=== PATIENT | female | born 1950 | race Caucasian/White ===

== ENCOUNTER 2022-03-09 16:20 | Emergency (ER) | payer MEDICARE, SELFPAY ==
--- NOTE | 2022-03-09 16:31 | DI.RAD.S_ITS ---
PROCEDURE: XR ACUTE ABDOMEN SERIES INDICATIONS: constipation x 8 days TECHNIQUE: One view chest and two views of the abdomen were acquired. COMPARISON: None. FINDINGS: Surgical changes and devices: None. Chest: Lungs are clear. Heart size is normal. No pleural effusions. No pneumoperitoneum. Abdomen: Bowel gas pattern is normal. No suspicious calcifications. Visualized solid organ contours appear normal. Gastric lap band and port in good position. No evidence of breaks in the tubing. Bones: No suspicious bony lesions. IMPRESSION: No acute cardiopulmonary findings Nonobstructive bowel gas pattern. Moderate fecal debris in the rectum. Approved by: Fausto Soto M.D. on 03/09/2022 at 16:22
[2022-03-09 16:34] VITALS: BP 169/81; PULSE 88; RESP 16; TEMP 36.7; O2SAT 100; BMI 28.8
[2022-03-09 16:49] VITALS: PULSE 79; O2SAT 100
[2022-03-09 17:00] VITALS: PULSE 73; O2SAT 100
[2022-03-09 17:21] VITALS: BP 166/79; PULSE 74; O2SAT 100
[2022-03-09 17:30] VITALS: BP 159/83; PULSE 71; O2SAT 98
--- NOTE | 2022-03-09 17:43 | ED.ABDPAIN ---
HPI - Abdominal Pain <Perry López PA-C - Last Filed: 03/09/22 18:24> General Chief Complaint: Abdominal Pain Stated Complaint: CONSTIPATION 8 DAYS BOWEL IMPACT Time Seen by Provider: 03/09/22 16:48 Source: patient Mode of arrival: Family Vehicle History of Present Illness HPI narrative: This is a 72-year-old female presenting to the emergency department due to 8 days of constipation. She states she has taken 1 dose of Colace yesterday without significant relief. States she can ?feel? in her rectum. Denies any acute stabbing abdominal pain just reports a dull aching sensation. Has not had constipation like this in the past. Denies any nausea, vomiting, fevers, or any other concerning signs or symptoms. Related Data Home Medications Medication Instructions Recorded Confirmed Statin PO 03/03/22 03/03/22 alprazolam 0.25 mg tablet 0.25 mg PO DAILY 03/03/22 03/03/22 baclofen 10 mg tablet 10 mg PO DAILY 03/03/22 03/03/22 methylprednisolone 4 mg tablets in See Rx Instructions PO PER PKG DIR 03/03/22 03/03/22 a dose pack Previous Rx's Medication Instructions Recorded docusate calcium 240 mg capsule 240 mg PO DAILY #5 cap 03/09/22 Allergies Allergy/AdvReac Type Severity Reaction Status Date / Time codeine AdvReac Mild Nausea Verified 03/09/22 16:39 Review of Systems <Perry López PA-C - Last Filed: 03/09/22 18:24> Review of Systems Narrative: See HPI Patient History <Perry López PA-C - Last Filed: 03/09/22 18:24> Social History Smoking Status: Never smoker Smoking Status: Never smoker alcohol intake frequency: 0-2 drinks per day Alcohol type: beer, wine and hard liquor Substance Use Type: does not use Exam <DAV Arellano Last Filed: 03/09/22 18:24> Initial Vital Signs Initial Vital Signs: Vital Signs Temperature 98.0 F 03/09/22 16:34 Pulse Rate 88 03/09/22 16:34 Respiratory Rate 16 03/09/22 16:34 Blood Pressure 169/81 H 03/09/22 16:34 Pulse Oximetry 100 03/09/22 16:34 Const General: cooperative and healthy appearing GI Palpation: soft and other Other: Very mild generalized tenderness to palpation of the abdomen <DO Ashanti Hu Last Filed: 03/10/22 08:10> Initial Vital Signs Initial Vital Signs: Vital Signs Temperature 98.0 F 03/09/22 16:34 Pulse Rate 88 03/09/22 16:34 Respiratory Rate 16 03/09/22 16:34 Blood Pressure 169/81 H 03/09/22 16:34 Pulse Oximetry 100 03/09/22 16:34 Course <DAV Arellano Last Filed: 03/09/22 18:24> Orders Ordered: ED Orders 03/09/22 16:31 XR acute abdomen series Stat Vital Signs Vital signs: Vital Signs - 8 hr 03/09/22 16:34 03/09/22 16:49 03/09/22 17:00 Temperature 98.0 F Pulse Rate 88 79 73 Respiratory Rate 16 Blood Pressure 169/81 H Pulse Oximetry 100 100 100 03/09/22 17:21 03/09/22 17:30 Temperature Pulse Rate 74 71 Respiratory Rate Blood Pressure 166/79 H 159/83 H Pulse Oximetry 100 98 <DO Ashanti Hu Last Filed: 03/10/22 08:10> Orders Ordered: ED Orders 03/09/22 16:31 XR acute abdomen series Stat Vital Signs Vital signs: Vital Signs - 8 hr 03/09/22 16:34 03/09/22 16:49 03/09/22 17:00 Temperature 98.0 F Pulse Rate 88 79 73 Respiratory Rate 16 Blood Pressure 169/81 H Pulse Oximetry 100 100 100 03/09/22 17:21 03/09/22 17:30 Temperature Pulse Rate 74 71 Respiratory Rate Blood Pressure 166/79 H 159/83 H Pulse Oximetry 100 98 MDM - Abdominal Pain <DAV Arellano Last Filed: 03/09/22 18:24> Imaging Data Abdominal x-ray: Radiologist's Impression: [address] [address] XRay Report Signed Patient: Usha Bah MR#: [id number] : 1950 Acct:[id number] Age/Sex: 72 / F Date of Service: 03/09/22 Loc: ED Accession Number: [id number] ?? Procedure: XR acute abdomen series Ordering Provider: Perry López P.A-C PROCEDURE:? XR ACUTE ABDOMEN SERIES ? INDICATIONS:? constipation x 8 days ? TECHNIQUE:? One view chest and two views of the abdomen were acquired.? ? COMPARISON:? None. ? FINDINGS:? ? Surgical changes and devices:? None.? ? Chest:? Lungs are clear.? Heart size is normal.? No pleural effusions.? No pneumoperitoneum.? ? Abdomen:? Bowel gas pattern is normal.? No suspicious calcifications.? Visualized solid organ contours appear normal.? Gastric lap band and port in good position.? No evidence of breaks in the tubing. ? Bones:? No suspicious bony lesions.? ? IMPRESSION:? ? No acute cardiopulmonary findings Nonobstructive bowel gas pattern.? Moderate fecal debris in the rectum. ? ? ? Approved by: Fausto Soto M.D. on 03/09/2022 at 16:22? MDM Narrative Medical decision making narrative: This is a 72-year-old female presents to the emergency department due to suspected constipation. X-ray of the abdomen shows a nonobstructive bowel gas pattern patient does not describe any acute pain concerning for small bowel obstruction. Shared decision making was utilized with the patient who preferred going home with oral laxatives rather than a fecal disimpaction and enema. Patient stated that she would return if the oral laxatives were ineffective. No acute abdominal tenderness palpation concerning for an acute abdomen. Vitals unremarkable. Discharge Plan Departure Patient Disposition: Home Clinical Impression: Constipation Instructions: DI for Constipation Activity Restrictions/Additional Instructions: Thank you for coming to the [facility] Emergency Department today. As we discussed I suspect this is just benign constipation. The x-ray of her abdomen showed no obstruction in your intestines. Please take these medications as prescribed and that should help with the constipation. Please also review the test permission for more information about general constipation. As we discussed if these medications are ineffective you may return for fecal disimpaction (the procedure I described to you) and enema. Prescriptions: New docusate calcium 240 mg capsule 240 mg PO DAILY Qty: 5 0RF No Action methylprednisolone 4 mg tablets,dose pack See Rx Instructions PO PER PKG DIR 0RF Rx Instructions: PO PER PKG DIR baclofen 10 mg tablet 10 mg PO DAILY 0RF alprazolam 0.25 mg tablet 0.25 mg PO DAILY 0RF Statin PO 0RF <Audra Ratliff, DO - Last Filed: 03/10/22 08:10> Cosign ED Attending Cosignature Attestation: I was immediately available in the department for consultation. Documentation has been reviewed. I agree with assessment and plan.
== END 2022-03-09 18:01 | disposition home or self-care (01) ==
PROVIDERS: Emergency Provider Physician Assistant Medical
DX: K59.00 Constipation, unspecified (principal)
CPT/HCPCS: 74022; 99283

== ENCOUNTER 2022-08-11 09:51 | Emergency (ER) | payer MEDICARE, SELFPAY ==
[2022-08-11 10:00] VITALS: BP 133/68; PULSE 89; RESP 18; TEMP 36.9; O2SAT 99; BMI 25.7
[2022-08-11] MEDS: SODIUM CHLORIDE 0.9% 1,000 ML 1000 ML IV (10:26)
[2022-08-11 10:28] LABS: Add Manual Diff / Slide Review NO; Basophils Absolute Auto 0 /uL (0-100); Basophils Percent Auto 0.3 % (0-2); Eosinophils Absolute Auto 100 /uL (0-450); Eosinophils Percent Auto 2.1 % (2-4); Hematocrit 36.4 % (36-46); Hemoglobin 12.5 g/dL (12.0-16.0); Lymphocytes Absolute Auto 1000 /uL (1100-4500); Lymphocytes Percent Auto 14.1 % (25-40); Mean Corpuscular HGB Conc 34.3 % (30-36); Mean Corpuscular Hemoglobin 30.9 PG (26-34); Mean Corpuscular Volume 90.2 fL (80-100); Monocytes Absolute Auto 600 /uL (0-900); Neutrophils Absolute Auto 5200 /uL (1500-7000); Neutrophils Percent Auto 74.5 % (50-75); Platelet Count 319 X10^3/uL (150-400); Red Blood Cell Count 4.04 X10^6/uL (4.0-5.2)
[2022-08-11 10:37] LABS: Alanine Aminotransferase 14 IU/L (<35); Albumin 4.3 g/dL (3.5-5.0); Albumin Globulin Ratio 1.5 (1.0-2.8); Alkaline Phosphatase 80 U/L (38-126); Aspartate Aminotransferase 28 IU/L (14-36); BUN Creatinine Ratio 16.3 (6-22); Bilirubin Total 1.1 mg/dL (0.2-1.3); Blood Urea Nitrogen 13 mg/dL (7-17); Calcium 9.1 mg/dL (8.4-10.2); Carbon Dioxide 21 mmol/L (22-32); Chloride 100 mmol/L (98-107); Estimated Glomerular Filt Rate > 60 mL/min (>60); Globulin 2.9 g/dL (1.7-4.1); Glucose 102 mg/dL (80-110); HEMOLYSIS 25 (0-50); Lipase 65 U/L (23-300); Potassium 3.8 mmol/L (3.4-5.1); Sodium 133 mmol/L (137-145); Total Protein 7.2 g/dL (6.3-8.2)
[2022-08-11 11:23] VITALS: BP 163/67; PULSE 70; RESP 18; O2SAT 99
--- NOTE | 2022-08-11 11:42 | DI.CT.S_ITS ---
PROCEDURE: CT ABDOMEN PELVIS W CON INDICATIONS: abd pain, diarrhea TECHNIQUE: After the administration of intravenous contrast, axial sections acquired from the lung bases to the pubic symphysis. Coronal and sagittal reformats were performed. For radiation dose reduction, the following was used: automated exposure control, adjustment of mA and/or kV according to patient size. COMPARISON: None. FINDINGS: Image quality: Excellent. Lung bases: Unremarkable. Heart: No significant findings. ABDOMEN: Liver: Unremarkable. Gallbladder: Unremarkable. Biliary ducts: Unremarkable. Pancreas: Unremarkable. Spleen: Unremarkable. Adrenal Glands: Unremarkable. Kidneys and Ureters: Unremarkable. Stomach and Bowel: Postsurgical changes are seen from gastric lap band procedure. Liquid stool is seen within the cecum and transverse colon. Multiple diverticula are seen within the sigmoid colon. There may be mild bowel wall thickening within the ascending colon and the rectum. Appendix is not visualized. Peritoneum: Small amount of nonspecific free fluid is seen in the pelvis. No pneumoperitoneum. Ventral Wall: No hernias. Abdominal Nodes: No retroperitoneal or mesenteric adenopathy by size criteria. Vessels: Aorta and inferior vena cava are normal in size. PELVIS: Pelvic Organs: Status post hysterectomy. Bladder: Unremarkable. Pelvic Nodes: No enlarged lymph nodes. Miscellaneous: No hernias are seen. Bones: Focal degenerative changes are seen at the L2-3 level. IMPRESSION: 1. Liquid stool is seen in the ascending colon with mild bowel wall thickening. Recommend correlation for clinical causes of diarrhea or colitis. 2. Small amount of free fluid in the pelvis is nonspecific and may be reactive. No pneumoperitoneum. 3. Colonic diverticulosis without a definite focal inflamed diverticulum to suggest diverticulitis. Dictated by: Luther Brewer M.D. on 08/11/2022 at 11:10 Approved by: Luther Brewer M.D. on 08/11/2022 at 11:19
[2022-08-11 12:27] LABS: Appearance Urine UA CLEAR; Bilirubin Urine UA NEGATIVE (NEGATIVE); Color Urine UA YELLOW; Glucose Urine UA NEGATIVE (Negative); Ketones Urine UA NEGATIVE (NEGATIVE); Leukocyte Esterase Urine UA 1+ (NEGATIVE); Nitrite Urine UA NEGATIVE (Negative); Occult Blood Urine UA TRACE-LYSED (Negative); Protein Urine UA NEGATIVE (Negative); Specific Gravity Urine UA <=1.005 (1.000-1.035); Urobilinogen Urine UA 0.2 E.U./dL (0.2)
[2022-08-11 12:35] LABS: Bacteria Urine Moderate (10-30); Culture Indicated Urine Specimen Cultured; RBC Urine 0-1/HPF (0-5/HPF); Squamous Epithelial Cell Urine 1-5 /HPF (0-5/HPF); Transitional Epi Cells Urine 0-1/HPF (0-5/HPF); WBC Urine 10-30/HPF (0-5/HPF)
--- NOTE | 2022-08-11 12:43 | ED.NAVMDI ---
HPI - Nausea/Vomiting/Diarrhea General Chief complaint: Nausea/Vomiting/Diarrhea Stated complaint: stomach pains bloating Time Seen by Provider: 08/11/22 11:42 Source: patient Mode of arrival: Ambulatory Limitations: no limitations History of Present Illness HPI Narrative: This is a 72-year-old female on medication for dyslipidemia who presents with 3 days of persistent watery diarrhea. Patient states started after eating a large amount of peanuts, she states she did not have any other symptoms, no fevers or chills. No nausea or vomiting. No chest pain or shortness of breath, no lightheadedness or passing out. She is had frequent persistent watery stools even with sometimes not making it to the bathroom. She has not had any black or bloody stools. She had lower abdominal cramping which has been improving. No dysuria urgency or frequency. 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 She states she is allergic to narcotics. Related Data Home Medications Medication Instructions Recorded Confirmed alprazolam 0.25 mg tablet 0.25 mg PO DAILY 03/03/22 03/03/22 baclofen 10 mg tablet 10 mg PO DAILY 03/03/22 03/03/22 Allergies Allergy/AdvReac Type Severity Reaction Status Date / Time codeine AdvReac Mild Nausea Verified 08/11/22 10:18 Review of Systems Review of Systems ROS Unobtainable: All systems reviewed & are unremarkable except as noted in HPI and below Patient History Social History Smoking Status: Never smoker Smoking Status: Never smoker alcohol intake frequency: 0-2 drinks per day Alcohol type: beer, wine and hard liquor Substance Use Type: does not use Exam Narrative Exam Narrative: GENERAL: Alert and oriented x three, mild distress. HEENT: Head normocephalic, atraumatic, EOMI, pupils reactive, face symmetric, moist mucous membranes NECK: Supple, full range of motion CARDIOVASCULAR: Regular rate and rhythm without murmurs, rubs or gallops. RESPIRATORY: Breath sounds equal bilaterally, no wheezes rales or rhonchi. ABDOMEN: Soft, nontender. Normoactive bowel sounds all 4 quadrants. No guarding or rebound, rigidity, no mass : No CVA tenderness EXTREMITIES: Normal range of motion, no clubbing or edema. Neurovascularly intact NEUROLOGICAL: Cranial nerves II through XII grossly intact. Moving all extremities SKIN: Warm, dry, no petechiae, no rashes or lesions. Initial Vital Signs Initial Vital Signs: Vital Signs Temperature 98.5 F 08/11/22 10:00 Pulse Rate 89 08/11/22 10:00 Respiratory Rate 18 08/11/22 10:00 Blood Pressure 133/68 08/11/22 10:00 Pulse Oximetry 99 08/11/22 10:00 Oxygen Delivery Method 08/11/22 10:00 Course Orders Ordered: ED Orders 08/11/22 10:15 Complete Blood Count AUTO DIFF Stat Comprehensive Metabolic Panel Stat Lipase Stat 08/11/22 11:42 CT abdomen pelvis w con Stat 08/11/22 12:00 Urinalysis and Microscopic Stat Urine Culture Stat Discontinued Medications Sodium Chloride (Normal Saline 0.9%) 1,000 mls @ 1,000 mls/hr IV BOLUS ONE Stop: 08/11/22 11:16 Last Infusion: 08/11/22 11:23 Dose: 0 mls/hr Documented By: Admin: 08/11/22 10:26 Dose: 1,000 mls/hr Documented By: KLS Vital Signs Vital signs: Vital Signs - 8 hr 08/11/22 11:23 08/11/22 13:41 Pulse Rate 70 81 Respiratory Rate 18 16 Blood Pressure 163/67 H 146/71 H Pulse Oximetry 99 99 Oxygen Delivery Method Room Air Room Air MDM - Nausea/Vomiting/Diarrhea Lab Data Result diagrams: 08/11/22 10:15 08/11/22 10:15 Labs: Lab Results 08/11/22 08/11/22 08/11/22 Range/Units 10:15 10:15 12:00 WBC 7.0 (4.5-11.0) X10^3/uL RBC 4.04 (4.0-5.2) X10^6/uL Hgb 12.5 (12.0-16.0) g/dL Hct 36.4 (36-46) % MCV 90.2 (80-100) fL MCH 30.9 (26-34) PG MCHC 34.3 (30-36) % RDW 13.0 (11.6-14.8) % Plt Count 319 (150-400) X10^3/uL Neut % (Auto) 74.5 (50-75) % Lymph % (Auto) 14.1 L (25-40) % [place] % (Auto) 9.0 (3-14) % Eos % (Auto) 2.1 (2-4) % Baso % (Auto) 0.3 (0-2) % Neut # (Auto) 5200 (7627-3124) /uL Lymph # (Auto) 1000 L (1260-7697) /uL [place] # (Auto) 600 (0-900) /uL Eos # (Auto) 100 (0-450) /uL Baso # (Auto) 0 (0-100) /uL Sodium 133 L (137-145) mmol/L Potassium 3.8 (3.4-5.1) mmol/L Chloride 100 (98-107) mmol/L Carbon Dioxide 21 L (22-32) mmol/L BUN 13 (7-17) mg/dL Creatinine 0.80 (0.52-1.04) mg/dL Estimated GFR > 60 (>60) mL/min BUN/Creatinine Ratio 16.3 (6-22) Glucose 102 (80-110) mg/dL Calcium 9.1 (8.4-10.2) mg/dL Total Bilirubin 1.1 (0.2-1.3) mg/dL AST 28 (14-36) IU/L ALT 14 (<35) IU/L Alkaline Phosphatase 80 (38-126) U/L Total Protein 7.2 (6.3-8.2) g/dL Albumin 4.3 (3.5-5.0) g/dL Globulin 2.9 (1.7-4.1) g/dL Albumin/Globulin Ratio 1.5 (1.0-2.8) Lipase 65 (23-300) U/L Urine Color Yellow Urine Appearance Clear Urine pH 5.0 (4.5-8.0) Ur Specific [place] <=1.005 (1.000-1.035) Urine Protein Negative (Negative) Urine Glucose (UA) Negative (Negative) g/dL Urine Ketones Negative (NEGATIVE) Urine Occult Blood Trace-lysed (Negative) Urine Nitrate Negative (Negative) Urine Bilirubin Negative (NEGATIVE) Urine Urobilinogen 0.2 (0.2) E.U./dL Ur Leukocyte Esterase 1+ H (NEGATIVE) Urine RBC 0-1/hpf (0-5/HPF) Urine WBC 10-30/hpf H (0-5/HPF) Ur Squamous Epith Cells 1-5 /hpf (0-5/HPF) Ur Transition Epith Cell 0-1/hpf (0-5/HPF) Urine Bacteria Moderate (10-30) H (None) Ur Culture Indicated? Specimen cultured Imaging Data CT scan - abdomen/pelvis: Radiologist's Impression: Usha Bah??72??F??1950 ? Allergy/Adv: codeine Close Abdomen/Pelvis CT (Signed) Luther Brewer - 08/11/22 Chest/Abdomen X-ray (Signed) Fausto Soto - 03/09/22 [place] [address] CT Scan Report Signed Patient: Usha Bah MR#: [id number] : 1950 Acct:[id number] Age/Sex: 72 / F Date of Service: 08/11/22 Loc: ED Accession Number: [id number] ?? Procedure: CT abdomen pelvis w con Ordering Provider: Yazmin Diallo D.O. PROCEDURE:? CT ABDOMEN PELVIS W CON ? INDICATIONS:? abd pain, diarrhea ? TECHNIQUE:? After the administration of intravenous contrast, axial sections acquired from the lung bases to the pubic symphysis.? Coronal and sagittal reformats were performed.? For radiation dose reduction, the following was used:? automated exposure control, adjustment of mA and/or kV according to patient size.? ? COMPARISON:? None. ? FINDINGS:? Image quality:? Excellent.? ? Lung bases:? Unremarkable. Heart:? No significant findings. ? ABDOMEN: Liver:? Unremarkable.? ? Gallbladder:? Unremarkable. Biliary ducts:? Unremarkable.? ? Pancreas:? Unremarkable.? ? Spleen:? Unremarkable.? ? Adrenal Glands:? Unremarkable.? ? Kidneys and Ureters:? Unremarkable.? ? ? Stomach and Bowel:? Postsurgical changes are seen from gastric lap band procedure.? Liquid stool is seen within the cecum and transverse colon.? Multiple diverticula are seen within the sigmoid colon.? There may be mild bowel wall thickening within the ascending colon and the rectum.? Appendix is not visualized. Peritoneum:? Small amount of nonspecific free fluid is seen in the pelvis.? No pneumoperitoneum. ? Ventral Wall: ? No hernias.? Abdominal Nodes:? No retroperitoneal or mesenteric adenopathy by size criteria.? Vessels:? Aorta and inferior vena cava are normal in size.? ? PELVIS: Pelvic Organs:? Status post hysterectomy.? ? Bladder:? Unremarkable.? ? Pelvic Nodes: No enlarged lymph nodes.? Miscellaneous: No hernias are seen. ? ? ? Bones:? Focal degenerative changes are seen at the L2-3 level. ? ? IMPRESSION:? 1. Liquid stool is seen in the ascending colon with mild bowel wall thickening.? Recommend correlation for clinical causes of diarrhea or colitis. 2. Small amount of free fluid in the pelvis is nonspecific and may be reactive.? No pneumoperitoneum. 3. Colonic diverticulosis without a definite focal inflamed diverticulum to suggest diverticulitis. ? ? Dictated by: Luther Brewer M.D. on 08/11/2022 at 11:10 ? ? Approved by: Luther Brewer M.D. on 08/11/2022 at 11:19?? MDM Narrative Medical decision making narrative: Pleasant 72-year-old with reassuring labs, urine shows possible infection but patient has had mainly diarrhea without any urinary symptoms. CT shows changes consistent with possible colitis. Patient states her stools have started to slow with Imodium. She has not been able to give a stool sample in the department. Discussed possibly starting antibiotics she defers to wait for urine culture and will given outpatient script for GI panel. Discussed with patient current findings she continue with Imodium as needed as well as return precautions. Discharge Plan Departure Patient Disposition: Home Clinical Impression: Diarrhea, Colitis Instructions: DI for Colitis Activity Restrictions/Additional Instructions: Please follow-up if your diarrhea is persisting. Have been given a script for outpatient GI panel you can drop this off at the lab. You will need to provide it within several hours of making the sample. You may continue to take Imodium [id number] as instructed on the bottle. Please return for fevers, rapidly worsening pain, lightheadedness or passing out, persistent vomiting, black or bloody stools or other new or concerning symptoms. Prescriptions: No Action baclofen 10 mg tablet 10 mg PO DAILY alprazolam 0.25 mg tablet 0.25 mg PO DAILY Referrals: Miscellaneous,Doctor, MD [Primary Care Provider] - Visit Report Forms: Patient Portal/API
[2022-08-11 13:41] VITALS: BP 146/71; PULSE 81; RESP 16; O2SAT 99
== END 2022-08-11 13:42 | disposition home or self-care (01) ==
PROVIDERS: Emergency Provider Emergency Medicine
DX: K52.9 Noninfective gastroenteritis and colitis, unspecified (principal); R10.30 Lower abdominal pain, unspecified
CPT/HCPCS: 36415; 74177; 80053; 81001; 83690; 85025; 87086; 96360; 99284; Q9967

== ENCOUNTER → 2024-03-23 10:51 | Outpatient (CLI) | payer MEDICARE, SELFPAY ==
[2024-03-23 14:12] LABS: COVID-19 CEPHEID 4-PLEX PCR Negative (Negative); Influenza A - CEPHEID Flu A NEGATIVE (NEGATIVE); Influenza B - CEPHEID Flu B NEGATIVE (NEGATIVE); Respiratory Syncytial Virus Negative (Negative)
== END ==
PROVIDERS: Visit Provider Physician Assistant
DX: J02.9 Acute pharyngitis, unspecified (principal)
CPT/HCPCS: 0241U; 87070

== ENCOUNTER → 2024-09-09 12:58 | Outpatient (CLI) | payer MEDICARE, SELFPAY ==
--- NOTE | 2024-09-09 13:00 | DI.RAD.S_ITS ---
PROCEDURE: XR RIBS BI MIN 4V W CXR1V INDICATIONS: Rib pain TECHNIQUE: Four views of the ribs were acquired, along with a single view chest. COMPARISON: None. FINDINGS: Heart, mediastinum and pulmonary vascular: Heart is normal in size and configuration. Mediastinum is unremarkable. Pulmonary vascular is normal. Lungs: Clear Pleural spaces: No gross abnormality Bones and soft tissues: Bilateral ribs are unremarkable. Gastric lap band seen in the fundal region. Severe L2-3 degenerative disc disease noted IMPRESSION: Normal chest and bilateral ribs. Dictated by: Tito Morelos M.D. on 09/10/2024 at 9:50 Approved by: Tito Morelos M.D. on 09/10/2024 at 9:52
== END ==
PROVIDERS: Referring Provider Nurse Practitioner Family; Visit Provider Nurse Practitioner Family
DX: R07.81 Pleurodynia (principal)
CPT/HCPCS: 71111

== ENCOUNTER 2025-03-20 07:18 | Emergency (ER) | payer OTHER, SELFPAY ==
[2025-03-20 07:30] VITALS: BP 146/79; PULSE 89; RESP 17; TEMP 36.8; O2SAT 99; BMI 25.0
--- NOTE | 2025-03-20 07:55 | ED_ITS ---
HPI - Back Pain/Injury General Chief Complaint: Back Pain/Injury Stated Complaint: Back pain Time Seen by Provider: 03/20/25 07:45 Source: patient History of Present Illness HPI Narrative: Patient brought here by partner. Complains of back pain since injuring at work this past Saturday. 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 On Saturday she was moving equipment and later she felt pain. Worsening through the week. Not relieved with [id number] medications. No prior history of back surgery MRI or therapy. No bowel or bladder incontinence no saddle paresthesia no leg or feet numbness tingling or weakness. Patient states pain is worse with sitting. Better with standing. Increased pain with side bending leaning forward and back as well. Related Data Home Medications Medication Instructions Recorded Confirmed pravastatin 20 mg tablet 20 mg PO DAILY 09/09/24 03/20/25 Previous Rx's Medication Instructions Recorded baclofen 20 mg tablet 20 mg PO TID PRN pain (scale score 03/20/25 4-6) #20 tabs Allergies Allergy/AdvReac Type Severity Reaction Status Date / Time codeine AdvReac Mild Nausea Verified 03/20/25 07:39 Review of Systems Review of Systems Narrative: GENERAL: Negative chills, fatigue, malaise, fever, sweats. HEENT: Negative sinus pain, ear pain, sore throat RESPIRATORY: Negative dyspnea, cough CARDIOVASCULAR: Negative chest pain, palpitations GASTROINTESTINAL: Negative vomiting, nausea, abdominal pain : Negative dysuria, frequency, hematuria MUSCULOSKELETAL: Positive back/muscle or bony pain SKIN: Negative rash, skin lesions NEUROLOGIC: Negative weakness, numbness ROS Unobtainable: All systems reviewed & are unremarkable except as noted in HPI and below Patient History Social History Smoking Status: Former smoker Smoking Status: Former smoker alcohol intake frequency: 0-2 drinks per day Alcohol type: beer, wine and hard liquor Exam Narrative Exam Narrative: GENERAL: in no distress, not toxic not dyspneic HEAD: Normocephalic. EYES: Pupils equal round EXTREMITIES: No gross deformities. BACK: No flank tenderness. There is reproducible bilateral lower paralumbar muscle spasm, no midline tenderness or step-off the cervical thoracic or lumbar spine. Increased pain with side bending left and right leaning forward and back. Steady stiff gait no foot drop. No pain with straight leg raise bilaterally. NEURO: AOx4. Clear speech, steady self gait no footdrop strong bilateral patellar reflexes and ankle flexion-extension. Light touch intact do legs. SKIN: Warm and dry PSYCH: Not anxious, is cooperative Initial Vital Signs Initial Vital Signs: Vital Signs Temperature 98.3 F 03/20/25 07:30 Pulse Rate 89 03/20/25 07:30 Respiratory Rate 17 03/20/25 07:30 Blood Pressure 146/79 H 03/20/25 07:30 Pulse Oximetry 99 03/20/25 07:30 Oxygen Delivery Method Room Air 03/20/25 07:30 Course Orders Ordered: ED Orders 03/20/25 07:53 XR lumbar spine 2-3V Stat Discontinued Medications Hydrocodone Bitart/Acetaminophen (Hydrocodone/Acet 5/325 Tablet) 1 tab PO NOW ONE Stop: 03/20/25 07:54 Last Admin: 03/20/25 08:03 Dose: 1 tab Documented By: LAYLA Ketorolac Tromethamine (Ketorolac 30 Mg/Ml Vial) 30 mg IM NOW ONE Stop: 03/20/25 07:54 Last Admin: 03/20/25 08:04 Dose: 30 mg Documented By: LAYLA Ondansetron HCl (Ondansetron 4 Mg Odt) 4 mg SL NOW ONE Stop: 03/20/25 07:54 Last Admin: 03/20/25 09:20 Dose: Not Given Documented By: LAYLA Vital Signs Vital signs: Vital Signs - 8 hr 03/20/25 07:30 03/20/25 09:11 Temperature 98.3 F 98.1 F Pulse Rate 89 68 Respiratory Rate 17 16 Blood Pressure 146/79 H 155/72 H Pulse Oximetry 99 100 Oxygen Delivery Method Room Air Room Air MDM - Back Pain/Injury Imaging Data Extremity x-ray #1: Radiologist's Impression: [address] [address] XRay Report Signed Patient: Usha Bah MR#: [id number] : 1950 Acct:[id number] Age/Sex: 75 / F Date of Service: 03/20/25 Loc: ED Accession Number: [id number] Procedure: XR lumbar spine 2-3V Ordering Provider: Tro Torres MD PROCEDURE: XR LUMBAR SPINE 2-3V INDICATIONS: Pain/injury TECHNIQUE: 3 views of the lumbar spine were acquired. COMPARISON: [facility], CT, CT ABDOMEN PELVIS W CON, 08/11/2022, 11:51. FINDINGS: Bones: 5 [id number]-[id number] vertebrae are present. No vertebral body compression fractures. No suspicious bony lesions. Mild dextroconvex scoliotic curvature is seen. There is minimal retrolisthesis at L2-L3, with minimal anterolisthesis at L4-L5. At L2-L3, there is moderate to severe disc space narrowing, with associated endplate irregularity and sclerosis. Bridging endplate osteophytes can be seen on the left at this level. The disc heights otherwise appear well-preserved. Lower lumbar spine facet arthropathy is seen. Soft tissues: Overlying bowel gas pattern is normal. No suspicious soft tissue calcifications. A lap band is seen. IMPRESSION: No renay acute plain film abnormality is seen. Focal L2-L3 degenerative change seen. Mild dextroconvex scoliotic curvature is seen. Additional findings: Lap band Dictated by: Lasha Mari M.D. on 03/20/2025 at 7:27 Approved by: Lasha Mari M.D. on 03/20/2025 at 7:28 [facility] Narrative Medical decision making narrative: Patient brought here by partner. Complains of back pain since injuring at work this past Saturday. 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 On Saturday she was moving equipment and later she felt pain. Worsening through the week. Not relieved with [id number] medications. No prior history of back surgery MRI or therapy. No bowel or bladder incontinence no saddle paresthesia no leg or feet numbness tingling or weakness. Patient states pain is worse with sitting. Better with standing. Increased pain with side bending leaning forward and back as well. After history and exam, x-ray lumbar spine Toradol [place], exam is reassuring. No blood work or laboratories and indicated at this time. [facility] Medical records reviewed: No recent visit for this complaint Differential considered: Includes but not limited to muscle strain lumbar radiculopathy bulge disc herniated disc cauda equina Lab Test results independently reviewed as above. Pertinent findings: None i ndicated this time Imaging studies independently reviewed: X-ray lumbar spine, degenerative disc disease no acute finding Consultations: None indicated Re-evaluations: 8:59 a.m.. Pain is controlled. Reviewed results with patient and partner. X-ray imaging does show degenerative disc disease. L and I forms will be completed. Work note provided. Baclofen provided as prescription. She has appointment with primary care next Saturday for follow up for this visit as well. Work note provided. She desires discharge home. Discussion: Appropriate for discharge home exam is reassuring. Return precautions reviewed patient. No neuro deficits. No blood work or higher level imaging indicated this time. L and I forms completed. Return precautions reviewed. She desires discharge home. Partner is driving. Diagnosis: Lumbar strain Discharge Plan Departure Patient Disposition: Home Clinical Impression: Acute lumbar myofascial strain Qualifiers: Encounter type: initial encounter Qualified Code(s): S39.012A - Strain of muscle, fascia and tendon of lower back, initial encounter Instructions: DI for Muscle Strain, DI for Back Strain or Sprain Activity Restrictions/Additional Instructions: Your exam and x-ray imaging are reassuring. Prescription for your back pain has been sent to your pharmacy to pick up attendant a continued today. No driving operating machinery today as he had been given pain medication here today. Your L and I forms have been completed. Work note has been provided for the next 3 days. Please see your family doctor next Saturday as scheduled and for re-evaluation continued management of your injury. Return if worse if any questions or concerns. Prescriptions: New baclofen 20 mg tablet 20 mg PO TID PRN (Reason: pain (scale score 4-6)) Qty: 20 0RF No Action pravastatin 20 mg tablet 20 mg PO DAILY Referrals: Miscellaneous,Doctor, MD [Primary Care Provider] - Stand Alone Forms: Patient Portal/API/Survey, Work Release Note
[2025-03-20] MEDS: HYDROCODONE/ACET 5/325 TABLET 1 TAB PO (08:03)
[2025-03-20] MEDS: KETOROLAC 30 MG/ML VIAL IM (08:04)
[2025-03-20 09:11] VITALS: BP 155/72; PULSE 68; RESP 16; TEMP 36.7; O2SAT 100
== END 2025-03-20 09:21 | disposition home or self-care (01) ==
PROVIDERS: Emergency Provider Emergency Medicine
DX: S39.012A Strain of muscle, fascia and tendon of lower back, initial encounter (principal); X50.9XXA Other and unspecified overexertion or strenuous movements or postures, initial encounter; Y99.0 Civilian activity done for income or pay
CPT/HCPCS: 72100; 96372; 99283; J1885